=== PATIENT | female | born 1980 ===

== ENCOUNTER 2018-09-08 08:00 | Inpatient (IN) | payer OTHER ==
[~2018-09-08] VITALS: Ht 154.9 cm; Wt 3.6 kg
[~2018-09-08 08:00] MED LIST: PRENATAL TABLE1 EAC1 PO
[2018-09-11] MEDS ORDERED: CLARINEX PO (15:22)
[2018-09-18] MEDS ORDERED: DESLORATADINE5 MG PO (08:06)
== END 2018-09-22 14:25 | DRG 788 ==
LOC: OB/GYN 09-18 06:30 → O/R 09-18 06:30 → OB/GYN 09-18 13:45
PROVIDERS: ADMIT Obstetrics & Gynecology
PROC: 4A0HXFZ Measurement of Products of Conception, Cardiac Rhythm, External Approach (ICD-10-PCS; 2018-09-18)
PROC: 10D00Z1 Extraction of Products of Conception, Low, Open Approach (ICD-10-PCS; principal; 2018-09-18 16:45)
DX: O82 Encounter for cesarean delivery without indication (principal); Z3A.39 39 weeks gestation of pregnancy; Z37.0 Single live birth